=== PATIENT | male | born 1935 | race Hispanic/Latino ===

== ENCOUNTER 2017-08-14 15:47 | Outpatient (CLI) | payer MEDICARE ==
--- NOTE | 2017-08-14 16:28 | XRay Report ---
PA and lateral chest: Cough. There is a circumscribed noncalcified 8mm nodule in the posterior right upper lobe projecting just above and lateral to the hilum. The lungs otherwise are clear. The mediastinal contour is unremarkable. The pleural surfaces are smooth. Impression: Nonspecific right upper lobe nodule. Recommendation: Comparison images if available. If nodule not stable from prior exams CT scan needed.
== END 2017-08-14 15:48 | disposition home or self-care (01) ==
LOC: SPVIMAG 15:47
PROVIDERS: ATTEND Internal Medicine
DX: R91.1 Solitary pulmonary nodule (principal); R05 Cough
CPT/HCPCS: 71046